=== PATIENT | female | born 1985 | race Two or more races ===

== ENCOUNTER 2018-09-29 03:04 | Emergency (ER) | payer MEDICAID, OTHER ==
[~2018-09-29] VITALS: Ht 160 cm; Wt 58.5 kg
[~2018-09-29 03:04] MED LIST: ONDA4TAB6 PO
[2018-09-29] MEDS ORDERED: morphine 4 MG/ML inj SYRINge IV ONE ×2 (04:00→06:20)
[2018-09-29] MEDS ORDERED: ondansetron/PF 4mg/2ml inj IV ONE (04:00)
[2018-09-29 04:07] LABS: URINE HCG NEGATIVE (NEG)
[2018-09-29 04:11] LABS: PROTHROMBIN TIME 10.7 SECONDS (9.0-12.0)
[2018-09-29 04:12] LABS: INR 1.1 INR
[2018-09-29 04:14] LABS: ALANINE AMINOTRANSFERASE 12 U/L (12-78); ALBUMIN 3.8 G/DL (3.4-5.0); ALBUMIN/GLOBULIN RATIO 1.2 (1.1-1.5); ALKALINE PHOSPHATASE 64 IU/L (46-116); ANION GAP 6 (8-16); ASPARTATE AMINO TRANSFERASE 11 U/L (10-37); BILIRUBIN,TOTAL 0.7 MG/DL (0.1-1.0); BLOOD UREA NITROGEN 12 MG/DL (7-18); BUN/CREATININE RATIO 21.1 (6.6-38.0); CALCIUM 8.8 MG/DL (8.5-10.1); CHLORIDE 107 MMOL/L (99-107); CREATININE 0.57 MG/DL (0.40-0.90); GLUCOSE 106 MG/DL (70-104); LIPASE 181 U/L (73-393); POTASSIUM 3.6 MMOL/L (3.5-5.1); SODIUM 142 MMOL/L (135-145); TOTAL CARBON DIOXIDE 28.9 MMOL/L (24-32); TOTAL PROTEIN 6.9 G/DL (6.4-8.2); eGFR > 90 ML/MIN
[2018-09-29 04:21] LABS: BASOPHILS % (AUTO) 0.8 % (0-1); EOSINOPHILS # (AUTO) 0.3 X10'3 (0-0.9); EOSINOPHILS % (AUTO) 5.5 % (0-6); HEMATOCRIT 39.2 % (35.0-45.0); HEMOGLOBIN 13.4 g/dl (12.0-16.0); LYMPHOCYTES # (AUTO) 1.9 X10'3 (1.1-4.8); LYMPHOCYTES % (AUTO) 30.4 % (21-51); MEAN CORPUSCULAR HEMOGLOBIN 31.2 PG (27.0-31.0); MEAN CORPUSCULAR HGB CONC 34.1 g/dL (33.0-36.5); MEAN CORPUSCULAR VOLUME 91.4 FL (78-98); MEAN PLATELET VOLUME 9.5 FL (7.4-10.4); MONOCYTES # (AUTO) 0.5 X10'3 (0-0.9); MONOCYTES % (AUTO) 7.5 % (2-12); NEUTROPHILS # (AUTO) 3.4 X10'3 (1.8-7.7); NEUTROPHILS % (AUTO) 55.8 % (42-75); PLATELET COUNT 199 X10'3 (140-440); RED CELL DISTRIBUTION WIDTH 12.7 % (11.5-14.5); WHITE BLOOD COUNT 6.2 X10'3 (4.5-11.0)
[2018-09-29 04:22] LABS: CLARITY,URINE CLEAR (Clear); COLOR,URINE YELLOW (Yellow); GLUCOSE, URINE NEGATIVE (Neg); KETONES,URINE NEGATIVE (Neg); LEUKOCYTE ESTERASE ,URINE NEGATIVE (Neg); NITRITES, URINE NEGATIVE (Neg); OCCULT BLOOD,URINE NEGATIVE (Neg); PROTEIN,URINE NEGATIVE (Neg); UROBILINOGEN,URINE 0.2 E.U/dL (0.2-1.0)
[2018-09-29 04:25] LABS: UA COLLECTION TYPE CLN CATCH MIDSTREAM
--- NOTE | 2018-09-29 06:07 | NUR ---
U/S CALLED BACK AT [id number]. LASHAUN SAID SHE WOULD BE HERE SOON
[2018-09-29] MEDS ORDERED: ONDA4TAB12 PO (06:09)
[2018-09-29] MEDS ORDERED: ACET-3067 PO (06:09)
--- NOTE | 2018-09-29 06:15 | NUR ---
PT AWAITING US. REQUESTING ADTL PAIN MED. VERBAL RECEIVED FOR MORPHINE 4 MG IV.
[2018-09-29 08:11] VITALS: BP 92/51
== END 2018-09-29 08:13 | disposition home or self-care (01) ==
LOC: ER 03:06
DX: R10.13 Epigastric pain (principal); R11.0 Nausea
CPT/HCPCS: 36415; 74176; 76700; 80053; 81003; 81025; 83690; 85025; 85610; 96374; 96375; 96376; 99284; J2270; J2405

== ENCOUNTER 2020-03-10 01:46 | Emergency (ER) | payer MEDICAID, OTHER ==
[~2020-03-10] VITALS: Ht 160 cm; Wt 69.5 kg
[~2020-03-10 01:46] MED LIST changes: +ONDA4TAB12 PO
[2020-03-10 02:30] LABS: URINE HCG NEGATIVE (NEG)
[2020-03-10 02:31] LABS: BASOPHILS # (AUTO) 0.1 X10'3 (0-0.2); EOSINOPHILS # (AUTO) 0.2 X10'3 (0-0.9); EOSINOPHILS % (AUTO) 3.1 % (0-6); HEMATOCRIT 41.3 % (35.0-45.0); HEMOGLOBIN 14.1 g/dl (12.0-16.0); LYMPHOCYTES # (AUTO) 2.5 X10'3 (1.1-4.8); LYMPHOCYTES % (AUTO) 33.9 % (21-51); MEAN CORPUSCULAR HEMOGLOBIN 31.5 PG (27.0-31.0); MEAN CORPUSCULAR HGB CONC 34.1 g/dL (33.0-36.5); MEAN CORPUSCULAR VOLUME 92.3 FL (78-98); MEAN PLATELET VOLUME 9.3 FL (7.4-10.4); MONOCYTES # (AUTO) 0.6 X10'3 (0-0.9); MONOCYTES % (AUTO) 8.2 % (2-12); NEUTROPHILS % (AUTO) 53.8 % (42-75); PLATELET COUNT 228 X10'3 (140-440); RED BLOOD COUNT 4.48 X10'6 (4.20-5.60); RED CELL DISTRIBUTION WIDTH 12.3 % (11.5-14.5); WHITE BLOOD COUNT 7.4 X10'3 (4.5-11.0)
[2020-03-10 02:33] LABS: CLARITY,URINE CLEAR (Clear); COLOR,URINE YELLOW (Yellow); GLUCOSE, URINE NEGATIVE (Neg); KETONES,URINE NEGATIVE (Neg); LEUKOCYTE ESTERASE ,URINE NEGATIVE (Neg); NITRITES, URINE NEGATIVE (Neg); OCCULT BLOOD,URINE NEGATIVE (Neg); PROTEIN,URINE NEGATIVE (Neg); UROBILINOGEN,URINE 0.2 E.U/dL (0.2-1.0)
[2020-03-10 02:42] LABS: UA COLLECTION TYPE NON-SPECIFIED
[2020-03-10 02:49] LABS: ALANINE AMINOTRANSFERASE 32 U/L (12-78); ALBUMIN/GLOBULIN RATIO 1.1 (1.1-1.5); ALKALINE PHOSPHATASE 70 IU/L (46-116); ANION GAP 9 (8-16); ASPARTATE AMINO TRANSFERASE 24 U/L (10-37); BILIRUBIN,TOTAL 0.6 MG/DL (0.1-1.0); BLOOD UREA NITROGEN 12 MG/DL (7-18); BUN/CREATININE RATIO 14.5 (6.6-38.0); CALCIUM 9.2 MG/DL (8.5-10.1); CHLORIDE 105 MMOL/L (99-107); CREATININE 0.83 MG/DL (0.40-0.90); GLUCOSE 93 MG/DL (70-104); LIPASE 192 U/L (73-393); POTASSIUM 3.5 MMOL/L (3.5-5.1); SODIUM 139 MMOL/L (135-145); TOTAL CARBON DIOXIDE 25.5 MMOL/L (24-32); TOTAL PROTEIN 7.5 G/DL (6.4-8.2); eGFR 79 ML/MIN
[2020-03-10] MEDS ORDERED: famotidine/PF 10 mg/ml inj IV ONE (03:05)
[2020-03-10] MEDS ORDERED: FAMO40TA73 PO (04:39)
[2020-03-10 04:53] VITALS: BP 115/81
== END 2020-03-10 04:56 | disposition home or self-care (01) ==
LOC: ER 01:47
DX: R10.12 Left upper quadrant pain (principal); R11.2 Nausea with vomiting, unspecified; Z87.442 Personal history of urinary calculi; Z98.890 Other specified postprocedural states; Z79.899 Other long term (current) drug therapy
CPT/HCPCS: 36415; 76700; 80053; 81003; 81025; 83690; 85025; 96374; 99284; J3490

== ENCOUNTER 2022-05-29 21:44 | Emergency (ER) | payer MEDICAID ==
[~2022-05-29] VITALS: Ht 160 cm; Wt 61.4 kg
[~2022-05-29 21:44] MED LIST changes: +FAMO40TA73 PO
[2022-05-29 22:32] LABS: URINE HCG NEGATIVE (NEG)
[2022-05-29 22:32] LABS: BASOPHILS % (AUTO) 0.7 % (0-1); EOSINOPHILS # (AUTO) 0.2 X10'3 (0-0.9); EOSINOPHILS % (AUTO) 2.8 % (0-6); HEMATOCRIT 38.4 % (35.0-45.0); HEMOGLOBIN 13.2 g/dl (12.0-16.0); LYMPHOCYTES # (AUTO) 2.2 X10'3 (1.1-4.8); LYMPHOCYTES % (AUTO) 40.4 % (21-51); MEAN CORPUSCULAR HEMOGLOBIN 31.9 PG (27.0-31.0); MEAN CORPUSCULAR HGB CONC 34.4 g/dL (33.0-36.5); MEAN CORPUSCULAR VOLUME 92.8 FL (78-98); MONOCYTES # (AUTO) 0.4 X10'3 (0-0.9); MONOCYTES % (AUTO) 6.7 % (2-12); NEUTROPHILS # (AUTO) 2.7 X10'3 (1.8-7.7); NEUTROPHILS % (AUTO) 49.4 % (42-75); PLATELET COUNT 245 X10'3 (140-440); RED BLOOD COUNT 4.13 X10'6 (4.20-5.60); RED CELL DISTRIBUTION WIDTH 12.7 % (11.5-14.5); WHITE BLOOD COUNT 5.5 X10'3 (4.5-11.0)
[2022-05-29 22:50] LABS: CLARITY,URINE SLIGHTLY CLOUDY (Clear); COLOR,URINE YELLOW (Yellow); GLUCOSE, URINE NEGATIVE (Neg); KETONES,URINE NEGATIVE (Neg); LEUKOCYTE ESTERASE ,URINE NEGATIVE (Neg); NITRITES, URINE NEGATIVE (Neg); OCCULT BLOOD,URINE MODERATE (Neg); PH,URINE 7.5 (4.8-8.0); PROTEIN,URINE NEGATIVE (Neg); UROBILINOGEN,URINE 0.2 E.U/dL (0.2-1.0)
[2022-05-29 22:51] LABS: UA COLLECTION TYPE CLN CATCH MIDSTREAM
[2022-05-29] MEDS ORDERED: mag hydrox/Alum hydrox/simeth 30ml oral suspension PO ONE (23:10)
[2022-05-29] MEDS ORDERED: ondansetron/PF 4mg/2ml inj IV ONE (23:10)
[2022-05-29] MEDS ORDERED: normal saline 1000ML IV soln IVB ONE (23:10)
[2022-05-29] MEDS ORDERED: famotidine/PF 10 mg/ml inj IV ONE (23:10)
[2022-05-29] MEDS ORDERED: LIDOcaine Viscous 15ml cup TP ONE (23:10)
[2022-05-29] MEDS ORDERED: ketorolac tromethamine 15mg/ml inj. IV ONE (23:10)
[2022-05-29 23:16] LABS: ALANINE AMINOTRANSFERASE 16 U/L (12-78); ALBUMIN 3.6 G/DL (3.4-5.0); ALKALINE PHOSPHATASE 54 IU/L (46-116); ANION GAP 10 (8-16); ASPARTATE AMINO TRANSFERASE 20 U/L (10-37); BILIRUBIN,TOTAL 0.4 MG/DL (0.1-1.0); BLOOD UREA NITROGEN 15 MG/DL (7-18); BUN/CREATININE RATIO 22.1 (6.6-38.0); CHLORIDE 104 MMOL/L (99-107); CREATININE 0.68 MG/DL (0.40-0.90); GLUCOSE 111 MG/DL (70-104); LIPASE 161 U/L (73-393); POTASSIUM 3.6 MMOL/L (3.5-5.1); SODIUM 141 MMOL/L (135-145); TOTAL CARBON DIOXIDE 27.2 MMOL/L (24-32); TOTAL PROTEIN 7.2 G/DL (6.4-8.2); eGFR > 90 ML/MIN
[2022-05-29 23:26] LABS: WBC,URINE NONE SEEN /HPF (0-4)
[2022-05-29 23:27] LABS: AMORPHOUS PHOSPHATES 3+; BACTERIA,URINE NONE SEEN /HPF (Neg); MUCUS STRANDS FEW /LPF (Neg); SQUAMOUS EPITHELIAL CELL,UR FEW /LPF (FEW)
[2022-05-30] MEDS ORDERED: FAMO-128 PO (00:34)
[2022-05-30] MEDS ORDERED: ONDA4TAB12 PO (00:34)
[2022-05-30 00:50] VITALS: BP 97/58
== END 2022-05-30 00:53 | disposition home or self-care (01) ==
LOC: ER 21:46
DX: R10.13 Epigastric pain (principal); R11.0 Nausea; Z87.442 Personal history of urinary calculi; Z98.890 Other specified postprocedural states; Z79.899 Other long term (current) drug therapy
CPT/HCPCS: 36415; 80053; 81001; 81025; 83690; 84484; 85025; 93005; 96361; 96374; 96375; 99285; J1885; J2405; J3490; J7030

== ENCOUNTER 2022-10-30 02:36 | Emergency (ER) | payer MEDICAID ==
[~2022-10-30] VITALS: Ht 160 cm; Wt 63.6 kg
[~2022-10-30 02:36] MED LIST changes: +FAMO-128 PO
[2022-10-30] MEDS ORDERED: normal saline 1000ML IV soln IVB ONE (04:25)
[2022-10-30] MEDS ORDERED: proCHLORperazine 10 MG/2 ml inj IV ONE (04:25)
[2022-10-30] MEDS ORDERED: morphine 2 MG/ML inj. syringe IV PRN (04:25)
--- NOTE | 2022-10-30 06:37 | NUR ---
received report from Nia GUZMAN assuming care of pt.
[2022-10-30 07:51] VITALS: BP 99/58
== END 2022-10-30 07:52 | disposition home or self-care (01) ==
LOC: ER 02:36
DX: R51.9 Headache, unspecified (principal); R42 Dizziness and giddiness; R11.0 Nausea; Z87.442 Personal history of urinary calculi; Z79.899 Other long term (current) drug therapy
CPT/HCPCS: 70450; 96361; 96374; 96375; 99285; J0780; J2270; J7030

== ENCOUNTER 2023-06-12 03:40 | Emergency (ER) | payer MEDICAID ==
[~2023-06-12] VITALS: Ht 160 cm; Wt 63.9 kg
[2023-06-12 03:42] VITALS: TEMP 97.7
[2023-06-12] MEDS ORDERED: morphine 4 MG/ML inj SYRINge IV ONE (04:00)
[2023-06-12] MEDS ORDERED: ondansetron/PF 4mg/2ml inj IV ONE (04:00)
[2023-06-12] MEDS ORDERED: normal saline 1000ml 1,000 ML IV ONE (04:00)
[2023-06-12] MEDS ORDERED: LIDOcaine Viscous 15ml cup MM ONE (04:25)
[2023-06-12] MEDS ORDERED: mag hydrox/Alum hydrox/simeth 30ml oral suspension PO ONE (04:25)
[2023-06-12 04:28] LABS: URINE HCG NEGATIVE (NEG)
[2023-06-12 04:29] LABS: BILIRUBIN,URINE NEGATIVE (Neg); CLARITY,URINE SLIGHTLY CLOUDY (Clear); COLOR,URINE YELLOW (Yellow); GLUCOSE, URINE NEGATIVE (Neg); KETONES,URINE NEGATIVE (Neg); LEUKOCYTE ESTERASE ,URINE NEGATIVE (Neg); NITRITES, URINE NEGATIVE (Neg); OCCULT BLOOD,URINE NEGATIVE (Neg); PROTEIN,URINE NEGATIVE (Neg); UROBILINOGEN,URINE 0.2 E.U/dL (0.2-1.0)
[2023-06-12 04:33] LABS: UA COLLECTION TYPE CLN CATCH MIDSTREAM
[2023-06-12 04:34] LABS: BASOPHILS % (AUTO) 0.5 % (0-1); EOSINOPHILS # (AUTO) 0.1 X10'3 (0-0.9); HEMATOCRIT 42.6 % (35.0-45.0); HEMOGLOBIN 14.2 g/dl (12.0-16.0); LYMPHOCYTES # (AUTO) 1.8 X10'3 (1.1-4.8); LYMPHOCYTES % (AUTO) 26.9 % (21-51); MEAN CORPUSCULAR HEMOGLOBIN 31.5 PG (27.0-31.0); MEAN CORPUSCULAR HGB CONC 33.3 g/dL (33.0-36.5); MEAN CORPUSCULAR VOLUME 94.6 FL (78-98); MEAN PLATELET VOLUME 9.4 FL (7.4-10.4); MONOCYTES # (AUTO) 0.4 X10'3 (0-0.9); MONOCYTES % (AUTO) 6.3 % (2-12); NEUTROPHILS # (AUTO) 4.4 X10'3 (1.8-7.7); NEUTROPHILS % (AUTO) 64.3 % (42-75); PLATELET COUNT 226 X10'3 (140-440); RED BLOOD COUNT 4.51 X10'6 (4.20-5.60); RED CELL DISTRIBUTION WIDTH 12.9 % (11.5-14.5); WHITE BLOOD COUNT 6.9 X10'3 (4.5-11.0)
[2023-06-12 04:35] LABS: SQUAMOUS EPITHELIAL CELL,UR MANY /LPF (FEW)
[2023-06-12 04:36] LABS: FINE GRANULAR CAST 0-3 /LPF (NEGATIVE); MUCUS STRANDS MANY /LPF (Neg); RBC,URINE 0-2 /HPF (0-2); WBC,URINE 0-4 /HPF (0-4)
[2023-06-12 04:39] LABS: APTT 31 SECONDS (22-32); PROTHROMBIN TIME 10.8 SECONDS (9.0-12.0)
[2023-06-12 04:40] LABS: ALANINE AMINOTRANSFERASE 16 U/L (12-78); ALBUMIN 4.2 G/DL (3.4-5.0); ALBUMIN/GLOBULIN RATIO 1.2 (1.1-1.5); ALKALINE PHOSPHATASE 66 IU/L (46-116); ANION GAP 12 (8-16); ASPARTATE AMINO TRANSFERASE 13 U/L (10-37); BILIRUBIN,TOTAL 0.7 MG/DL (0.1-1.0); BLOOD UREA NITROGEN 11 MG/DL (7-18); BUN/CREATININE RATIO 16.7 (10.0-20.0); CALCIUM 9.2 MG/DL (8.5-10.1); CHLORIDE 100 MMOL/L (99-107); CREATININE 0.66 MG/DL (0.40-0.90); GLUCOSE 102 MG/DL (70-104); POTASSIUM 3.1 MMOL/L (3.5-5.1); SODIUM 137 MMOL/L (135-145); TOTAL CARBON DIOXIDE 25.3 MMOL/L (24-32); TOTAL PROTEIN 7.6 G/DL (6.4-8.2); eCRCL 97 ML/MIN; eGFR > 90 ML/MIN
[2023-06-12 04:42] LABS: LIPASE 50 U/L (16-77)
[2023-06-12 04:42] LABS: BACTERIA,URINE 2+ /HPF (Neg)
[2023-06-12] MEDS ORDERED: iohexol 300mg/ml 100ml inj. ONE (04:44)
[2023-06-12] MEDS ORDERED: potassium Cl 20 mEq SR tablet PO STA (05:36)
[2023-06-12 05:57] LABS: AMORPHOUS URATES 2+
[2023-06-12 08:00] LABS: H PYLORI ANTIBODY NEGATIVE (Neg)
[2023-06-12] MEDS ORDERED: PHEN16.234 PO (08:58)
[2023-06-12 09:38] VITALS: BP 132/78; PULSE 87; RESP 19; O2SAT 98
== END 2023-06-12 09:43 | disposition home or self-care (01) ==
LOC: ER 03:40
DX: R10.13 Epigastric pain (principal); Z20.822 Contact with and (suspected) exposure to COVID-19; E87.6 Hypokalemia; Z87.442 Personal history of urinary calculi; Z98.82 Breast implant status; Z79.899 Other long term (current) drug therapy
CPT/HCPCS: 36415; 71045; 74177; 76700; 80053; 81001; 81025; 83690; 84484; 85025; 85610; 85730; 86677; 93005; 96361; 96374; 96375; 99285; J2270; J2405; J3490; J7030; Q9967

== ENCOUNTER 2023-10-17 09:14 | Outpatient (CLI) | payer MEDICAID ==
[~2023-10-17 09:14] MED LIST changes: +PHEN16.234 PO
[2023-10-17] MEDS ORDERED: iohexol 300mg/ml 100ml inj. ONE (09:36)
== END 2023-10-17 23:59 | disposition home or self-care (01) ==
LOC: RAD 09:14
PROVIDERS: ATTEND Internal Medicine Hematology & Oncology
DX: C50.011 Malignant neoplasm of nipple and areola, right female breast (principal); Z98.82 Breast implant status
CPT/HCPCS: 71260; 74177; J3490; Q9967

== ENCOUNTER 2024-03-18 09:49 | Outpatient (CLI) | payer MEDICAID ==
[~2024-03-18 09:49] MED LIST changes: +ONDA-243 PO; -ONDA4TAB12 PO
[2024-03-18 10:54] LABS: BASOPHILS % (AUTO) 0.9 % (0-1); EOSINOPHILS # (AUTO) 0.2 X10'3 (0-0.9); EOSINOPHILS % (AUTO) 4.4 % (0-6); LYMPHOCYTES # (AUTO) 0.8 X10'3 (1.1-4.8); MEAN CORPUSCULAR HEMOGLOBIN 30.9 PG (27.0-31.0); MEAN CORPUSCULAR HGB CONC 32.8 g/dL (33.0-36.5); MEAN CORPUSCULAR VOLUME 94.1 FL (78-98); MEAN PLATELET VOLUME 9.6 FL (7.4-10.4); MONOCYTES # (AUTO) 0.3 X10'3 (0-0.9); MONOCYTES % (AUTO) 8.1 % (2-12); NEUTROPHILS # (AUTO) 2.9 X10'3 (1.8-7.7); NEUTROPHILS % (AUTO) 67.6 % (42-75); PRE OP HEMATOCRIT 38.7 % (35.0-45.0); PRE OP HEMOGLOBIN 12.7 g/dL (12.0-16.0); PRE OP PLATELET COUNT 203 X10'3 (140-440); PRE OP WHITE BLOOD COUNT 4.2 10'3 (4.8-10.8); RED BLOOD COUNT 4.12 X10'6 (4.20-5.60); RED CELL DISTRIBUTION WIDTH 16.1 % (11.5-14.5)
[2024-03-18] MEDS ORDERED: SERT-432 PO (11:01)
[2024-03-18] MEDS ORDERED: CARV3.123 PO (11:01)
[2024-03-18 11:06] LABS: PRE OP INR 1.1 INR
[2024-03-18 11:08] LABS: ALBUMIN 3.6 G/DL (3.4-5.0); ALBUMIN/GLOBULIN RATIO 1.1 (1.1-1.5); ALKALINE PHOSPHATASE 64 IU/L (46-116); BLOOD UREA NITROGEN 11 MG/DL (7-18); BUN/CREATININE RATIO 19.3 (10.0-20.0); CALCIUM 9.2 MG/DL (8.5-10.1); CHLORIDE 109 MMOL/L (99-107); CREATININE 0.57 MG/DL (0.40-0.90); PRE OP ALT 48 U/L (30-65); PRE OP ANION GAP 8 (8-16); PRE OP AST 20 U/L (10-37); PRE OP BILIRUB, TOTAL 0.9 MG/DL (0.0-1.0); PRE OP GLUCOSE 96 MG/DL (70-104); PRE OP POTASSIUM 3.9 MMOL/L (3.4-5.1); PRE OP SODIUM 145 MMOL/L (135-145); TOTAL CARBON DIOXIDE 27.9 MMOL/L (24-32); TOTAL PROTEIN 6.9 G/DL (6.4-8.2); eGFR > 90 ML/MIN
[2024-03-18 11:42] LABS: BETA HCG,QUANTITATIVE 2 mIU/ml
== END 2024-03-18 23:59 | disposition home or self-care (01) ==
LOC: LAB 09:49 → EDSTATUS 03-22 07:30
PROVIDERS: ATTEND Surgery
DX: Z01.818 Encounter for other preprocedural examination (principal); C50.111 Malignant neoplasm of central portion of right female breast; Z79.01 Long term (current) use of anticoagulants; Z98.890 Other specified postprocedural states; R10.2 Pelvic and perineal pain
CPT/HCPCS: 36415; 80053; 84702; 85025; 85610; 85730; J7120

== ENCOUNTER 2024-04-12 08:03 | Day surgery (SDC) | payer MEDICAID ==
[2024-04-10 11:33] LABS: BASOPHILS % (AUTO) 0.8 % (0-1); EOSINOPHILS # (AUTO) 0.1 X10'3 (0-0.9); EOSINOPHILS % (AUTO) 3.6 % (0-6); LYMPHOCYTES % (AUTO) 23.6 % (21-51); MEAN CORPUSCULAR HEMOGLOBIN 31.6 PG (27.0-31.0); MEAN CORPUSCULAR HGB CONC 33.2 g/dL (33.0-36.5); MEAN PLATELET VOLUME 8.8 FL (7.4-10.4); MONOCYTES # (AUTO) 0.4 X10'3 (0-0.9); MONOCYTES % (AUTO) 8.7 % (2-12); NEUTROPHILS # (AUTO) 2.6 X10'3 (1.8-7.7); NEUTROPHILS % (AUTO) 63.3 % (42-75); PRE OP HEMOGLOBIN 13.3 g/dL (12.0-16.0); PRE OP PLATELET COUNT 218 X10'3 (140-440); PRE OP WHITE BLOOD COUNT 4.1 10'3 (4.8-10.8); RED BLOOD COUNT 4.21 X10'6 (4.20-5.60); RED CELL DISTRIBUTION WIDTH 14.2 % (11.5-14.5)
[2024-04-10 11:48] LABS: ALBUMIN 3.7 G/DL (3.4-5.0); ALBUMIN/GLOBULIN RATIO 1.1 (1.1-1.5); ALKALINE PHOSPHATASE 75 IU/L (46-116); BLOOD UREA NITROGEN 12 MG/DL (7-18); BUN/CREATININE RATIO 18.8 (10.0-20.0); CHLORIDE 105 MMOL/L (99-107); CREATININE 0.64 MG/DL (0.40-0.90); PRE OP ALT 37 U/L (30-65); PRE OP ANION GAP 3 (8-16); PRE OP AST 25 U/L (10-37); PRE OP BILIRUB, TOTAL 1.1 MG/DL (0.0-1.0); PRE OP GLUCOSE 76 MG/DL (70-104); PRE OP SODIUM 140 MMOL/L (135-145); TOTAL CARBON DIOXIDE 31.9 MMOL/L (24-32); TOTAL PROTEIN 7.1 G/DL (6.4-8.2); eGFR > 90 ML/MIN
[2024-04-10 12:00] LABS: HCG SERUM QL NEGATIVE
[2024-04-12] VITALS (11 sets, daily range): BP systolic 96–112; BP diastolic 48–78; PULSE 68–98; RESP 13–16; TEMP 98; O2SAT 98–100
[~2024-04-12] VITALS: Ht 160 cm; Wt 71.5 kg
[2024-04-12] MEDS: cefazolin 2gm/D5W 100mL 100 ML IV ONE (05:30)
[~2024-04-12 08:03] MED LIST changes: +CARV3.123 PO; +DOCUMENT DATE & TIME OF BETA-BLOCKER PO ONE; -FAMO-128 PO; -FAMO40TA73 PO; -ONDA-243 PO; -ONDA4TAB6 PO; -PHEN16.234 PO; +SERT-432 PO
[2024-04-12] MEDS: famotidine 20mg tablet PO ONE (08:36)
[2024-04-12] MEDS: ringers solution, lacted 1,000 ML IV SCH (08:37)
[2024-04-12] MEDS ORDERED: BUPIVAcaine 2.5mg/ml inj 50ml vial (contains preservative) ONE (08:58)
[2024-04-12] MEDS ORDERED: LIDOcaine 1% (10mg/ml)w/preservative inj. 20ml MDV ONE (08:58)
[2024-04-12] MEDS: midazolam 1 mg/ML 2ml injection IV ONE (09:51)
[2024-04-12] MEDS ORDERED: morphine 4 MG/ML inj SYRINge IV PRN (10:15)
[2024-04-12] MEDS ORDERED: hydrALAZINE 20mg/ml inj. IV PRN (10:15)
[2024-04-12] MEDS ORDERED: ondansetron/PF 4mg/2ml inj IV PRN (10:15)
[2024-04-12] MEDS ORDERED: ringers solution, lacted 1,000 ML IV SCH (10:15)
[2024-04-12] MEDS ORDERED: fentaNYL/PF 50MCG/1 ML 2ML syringe IV PRN (10:15)
[2024-04-12] MEDS ORDERED: morphine 2 MG/ML inj. syringe IV PRN (10:15)
[2024-04-12] MEDS ORDERED: sevoflurane 250ml liquid IH ONE (10:19)
[2024-04-12] MEDS ORDERED: midazolam 1 mg/ML 2ml injection ONE (10:20)
[2024-04-12] MEDS ORDERED: fentaNYL/PF 50MCG/1 ML 2ML syringe ONE ×2 (10:20→11:10)
[2024-04-12] MEDS ORDERED: propofol inj 20 ML IV ONE ×2 (10:26→10:44)
[2024-04-12] MEDS ORDERED: ondansetron/PF 4mg/2ml inj ONE (10:26)
[2024-04-12] MEDS ORDERED: LIDOcaine 2% (20mg/ml) 5ml vial ONE (10:26)
[2024-04-12] MEDS ORDERED: acetaminophen 1,000mg/100ml IV 100 ML IV ONE (10:29)
[2024-04-12] MEDS: LIDOcaine 1% (10mg/ml)w/preservative inj. 20ml MDV SQ ONE (11:24)
[2024-04-12] MEDS: fentaNYL/PF 50MCG/1 ML 2ML syringe IV PRN (13:05)
== END 2024-04-12 13:40 | disposition home or self-care (01) ==
LOC: PAS 08:03
PROVIDERS: ATTEND Surgery
DX: C50.011 Malignant neoplasm of nipple and areola, right female breast (principal); C77.3 Secondary and unspecified malignant neoplasm of axilla and upper limb lymph nodes; G89.18 Other acute postprocedural pain; F41.9 Anxiety disorder, unspecified; Z79.891 Long term (current) use of opiate analgesic; Z79.899 Other long term (current) drug therapy; Z98.890 Other specified postprocedural states
CPT/HCPCS: 19301; 36415; 38525; 38792; 64420; 64421; 80053; 82948; 84703; 85025; A6402; J0131; J0690; J1100; J2250; J2405; J2704; J3010; J3490; J7030; J7120; Z7506; Z7508; Z7512; A4215; A4615; A4618; A6449; A7000

== ENCOUNTER 2024-10-05 09:36 | Emergency (ER) | payer MEDICAID ==
[~2024-10-05] VITALS: Ht 160 cm; Wt 64.3 kg
[~2024-10-05 09:36] MED LIST changes: -DOCUMENT DATE & TIME OF BETA-BLOCKER PO ONE
[2024-10-05] MEDS ORDERED: ketorolac trometh 15mg/ml vial 15 MG/ML ML IM ONE (10:10)
[2024-10-05] MEDS: ketorolac trometh 30MG/ML vial 30 MG/ML VIAL IM ONE (10:49)
[2024-10-05] MEDS: diphenhydrAMINE 50 mg/ml inj IV ONE (11:29)
[2024-10-05] MEDS: normal saline 1000ML IV soln IVB ONE (11:29)
[2024-10-05] MEDS: metoclopramide 5 mg/ml inj IV ONE (11:30)
[2024-10-05 13:08] VITALS: BP 128/64; PULSE 68; RESP 17; TEMP 97.9; O2SAT 98
== END 2024-10-05 13:04 | disposition home or self-care (01) ==
LOC: ER 09:37
DX: G43.909 Migraine, unspecified, not intractable, without status migrainosus (principal); Z87.440 Personal history of urinary (tract) infections; Z98.890 Other specified postprocedural states
CPT/HCPCS: 96361; 96372; 96374; 96375; 99284; J1200; J1885; J2765; J7030